=== PATIENT | female | born 1975 | race Caucasian/White ===

== ENCOUNTER → 2020-04-30 10:19 | Outpatient (BNVA) | payer MEDICAID, SELFPAY | PROVIDERS: PCP Registered Nurse; Referring Provider Registered Nurse; Visit Provider Surgery | DX: E66.9 Obesity, unspecified (principal); Z68.30 Body mass index [BMI] 30.0-30.9, adult; K91.2 Postsurgical malabsorption, not elsewhere classified; Z90.3 Acquired absence of stomach [part of] | CPT/HCPCS: 99212 ==

== ENCOUNTER 2020-08-04 10:23 | Outpatient (REF) | payer MEDICAID, SELFPAY ==
[2020-08-04 11:17] LABS: MANUAL DIFF FLAG NO
[2020-08-04 11:32] LABS: Basophils Percent Auto 0.6 % (0-2); Eosinophils Percent Auto 0.3 % (0-4); Hematocrit 28.3 % (37-47); Hemoglobin 7.5 g/dl (12.0-16.0); Imm Gran Abs Auto 0.02 X10*3/uL (0.00-0.03); Imm Gran Pct Auto 0.3 % (0.0-0.4); Lymphocytes Absolute Auto 1.4 X10*3/uL (1.2-4.9); Lymphocytes Percent Auto 21.9 % (20-40); Mean Corpuscular HGB Conc 26.5 g/dl (31.0-35.0); Mean Corpuscular Hemoglobin 18.2 pg (27.0-33.0); Mean Corpuscular Volume 68.5 fL (80-98); Mean Platelet Volume 11.2 fL (9.4-12.3); Monocytes Absolute Auto 0.3 X10*3/uL (0.1-1.2); Monocytes Percent Auto 5.3 % (2-11); Neutrophils Absolute Auto 4.4 X10*3/uL (2.0-8.3); Neutrophils Percent Auto 71.6 % (45-73); Platelet Count 323 X10*3/uL (160-400); Red Blood Count 4.13 X10*6/uL (4.20-5.50); White Blood Count 6.2 X10*3/uL (4.8-10.8)
[2020-08-04 11:46] LABS: Alanine Aminotransferase 7 U/L (0-31); Albumin Level 4.1 g/dL (3.5-5.0); Alkaline Phosphatase 44 U/L (39-117); Anion Gap 10 (12-20); Aspartate Amino Transferase 17 U/L (5-31); Bilirubin Total 0.7 mg/dL (0.0-1.0); Blood Urea Nitrogen 12 mg/dL (9-16); Calcium 8.6 mg/dL (8.4-10.2); Carbon Dioxide 27 mmol/L (22-29); Chloride 106 mmol/L (96-108); Cholesterol 203 mg/dL; Estimated Glomerular Filt Rate > 60; Glucose Fasting 83 mg/dL (60-99); HDL Cholesterol 64 mg/dL; Iron 13 mcg/dL (30-160); LDL Cholesterol Calculated 128 mg/dl; Percent Iron Saturation 3 % (15-50); Potassium 4.3 mmol/L (3.3-5.1); Sodium 139 mmol/L (135-145); Total Iron Binding Capacity 427 mcg/dL (228-428); Total Protein 6.8 g/dL (6.5-8.0); Triglycerides 59 mg/dL; Unsaturated Iron Binding 414 ug/dL
[2020-08-04 12:06] LABS: Vitamin B12 207 pg/mL (200-900)
[2020-08-04 12:11] LABS: Thyroid Stimulating Hormone 0.97 uIU/mL (0.32-4.0); Vitamin D 25-OH Total 23.5 ng/mL (>30)
[2020-08-07 06:47] LABS: Zinc 75 mcg/dL (60-130)
[2020-08-08 06:42] LABS: Vitamin B1 8 nmol/L (8-30)
[2020-08-08 18:12] LABS: Vitamin A 24 mcg/dL (38-98)
== END 2020-08-04 10:24 | disposition home or self-care (01) ==
LOC: HO.LAB 10:23
PROVIDERS: Visit Provider Surgery
DX: Z01.818 Encounter for other preprocedural examination (principal); K91.2 Postsurgical malabsorption, not elsewhere classified; E66.3 Overweight; Z68.29 Body mass index [BMI] 29.0-29.9, adult; Z90.3 Acquired absence of stomach [part of]
CPT/HCPCS: 36415; 80053; 80061; 82306; 82607; 83540; 84425; 84443; 84590; 84630; 85025; 99212

== ENCOUNTER → 2020-09-15 13:53 | Outpatient (BNVA) | payer MEDICAID, SELFPAY | PROVIDERS: PCP Registered Nurse; Visit Provider Surgery | DX: E66.9 Obesity, unspecified (principal); Z68.30 Body mass index [BMI] 30.0-30.9, adult | CPT/HCPCS: 99212 ==

== ENCOUNTER 2020-11-05 09:46 | Outpatient (REF) | payer MEDICAID, SELFPAY ==
[2020-11-05 11:58] LABS: Iron 12 mcg/dL (30-160); Percent Iron Saturation 3 % (15-50); Total Iron Binding Capacity 425 mcg/dL (228-428); Unsaturated Iron Binding 413 ug/dL
[2020-11-05 12:21] LABS: Vitamin D 25-OH Total 27.2 ng/mL (>30)
[2020-11-10 20:11] LABS: Vitamin A 32 mcg/dL (38-98)
== END 2020-11-05 09:47 | disposition home or self-care (01) ==
LOC: HO.LAB 09:46
PROVIDERS: Absent Provider Surgery; PCP Registered Nurse; Visit Provider Physician Assistant
DX: Z01.818 Encounter for other preprocedural examination (principal); E66.9 Obesity, unspecified; Z68.30 Body mass index [BMI] 30.0-30.9, adult; E55.9 Vitamin D deficiency, unspecified; E50.9 Vitamin A deficiency, unspecified; E61.1 Iron deficiency
CPT/HCPCS: 36415; 82306; 83540; 84590; 99212